=== PATIENT | female | born 1995 | race Asian ===

== ENCOUNTER 2016-12-09 20:31 | Emergency (ER) | payer OTHER ==
[2016-12-09 21:22] LABS: Urine Bilirubin Negative (Negative); Urine Glucose Negative (Negative); Urine Nitrite Negative (Negative)
[2016-12-09 21:31] LABS: Hematocrit 38 % (35-47); Hemoglobin 12.6 g/dl (12.0-16.0); Mean Corpuscular HGB Conc 33 g/dl (31-36); Mean Corpuscular Hemoglobin 27 pg (27-31); Mean Corpuscular Volume 83 fL (80-97); Mean Platelet Volume 9 um3 (7.4-10.4); Red Blood Count 4.64 10^6/ul (4.0-5.4); Red Cell Distribution Width 13 % (10.5-15); White Blood Count 8.3 10^3/ul (3.5-10.8)
[2016-12-09 21:47] LABS: ALT 11 U/L (7-52); AST 19 U/L (13-39); Albumin 4.4 g/dL (3.2-5.2); Alkaline Phosphatase 33 U/L (34-104); Anion Gap 9 mmol/L (2-11); BUN/Creatinine Ratio 18.8 (8-20); Blood Urea Nitrogen 13 mg/dL (6-24); CO2 Carbon Dioxide 26 mmol/L (22-32); Calcium 9.3 mg/dL (8.6-10.3); Chloride 101 mmol/L (101-111); EGFR African American 139.5 (>60); EGFR Non-African American 108.5 (>60); Globulin 3.7 g/dL (2-4); Glucose 96 mg/dL (70-100); Lipase 40 U/L (11.0-82.0); Potassium 3.9 mmol/L (3.5-5.0); Sodium 136 mmol/L (133-145); Total Protein 8.1 g/dL (6.4-8.9)
--- NOTE | 2016-12-09 21:55 | RAD ---
INDICATION: Left flank pain COMPARISON: None TECHNIQUE: Noncontrast axial source images were acquired from the level hemidiaphragms to the symphysis pubis as part of CT imaging for renal stone. Lung bases: The lung bases are clear. Liver: The liver is normal in size. Noncontrast imaging shows no evidence of a hepatic mass or ductal dilatation. Gallbladder: The gallbladder is contracted and therefore not well evaluated. Spleen: The spleen is normal in size. The noncontrast CT appearance is normal. Pancreas: Noncontrast imaging shows no pancreatic mass or ductal dilitation. Adrenal glands: No masses are identified. Kidneys/Bladder: There is no evidence of nephrolithiasis or CT evidence of hydronephrosis. Noncontrast imaging shows no evidence of a renal mass. The bladder is unremarkable.. Adenopathy: There is no evidence of intraperitoneal or retroperitoneal adenopathy. Evaluation is limited without oral contrast. Fluid collections: There is a small amount of free fluid in the cul-de-sac. Vessels: The aorta and iliac vessels are normal in caliber. There are no significant atherosclerotic changes. The IVC appears normal Pelvic organs: The uterus and adnexa appear normal GI tract: Limited evaluation of bowel shows a distended stomach with ingested material. The noncontrast CT appearance of the remainder the GI tract is unremarkable. Soft tissues: No soft tissue abnormalities of the extraperitoneal abdomen or pelvis are identified. Osseous structures: There are no acute osseous findings. IMPRESSION: NO CT EVIDENCE OF UROLITHIASIS. FLUID IN THE CUL-DE-SAC LIKELY REPRESENTING PHYSIOLOGIC FREE FLUID
[2016-12-09] MEDS ORDERED: Amoxicillin/Clavulanate TAB* 875 MG PO ONE (23:04)
[2016-12-09] MEDS ORDERED: Ibuprofen TAB* 600 MG PO ONE (23:04)
--- NOTE | 2016-12-09 23:28 | ED ---
Teodoro North Adam, scribed for Adolfo Crystal on 12/09/16 at 2100 . GI/ HPI - HPI Summary HPI Summary: Pt is a 21 year old female presenting with abdominal pain and urinary symptoms. She states that she has been having urgency to urinate at night for the past 3 days. Today she developed a throbbing pain in her LLQ which has been intermittent since. At 16:00 today she had one episode of burning during urination. She has been seen at [facility] and urgent care and states that results were negative for UTI at both. referred her to the ED. Pt states that she was treated for chlamydia by [facility] last night. She denies any other PMHx. - History of Current Complaint Chief Complaint: EDUrogenitalProblems Stated Complaint: POSS BLADDER INFECTION Hx Obtained From: Patient Onset/Duration: Started Days Ago, Atraumatic, Still Present Timing: Intermittent Severity: Moderate Current Severity: Moderate Pain Intensity: 1 Location of Pain: LLQ Pain Characteristics: Other: - Throbbing Associated Signs and Symptoms: Positive: Dysuria - Urgency, burning (1x) Aggravating Factor(s): Nothing Alleviating Factor(s): Nothing - Allergy/Home Medications Allergies/Adverse Reactions: Allergies Allergy/AdvReac Type Severity Reaction Status Date / Time No Known Allergies Allergy Verified 12/09/16 20:39 PMH/Surg Hx/FS Hx/Imm Hx Previously Healthy: Yes Infectious Disease History: No Infectious Disease History: Denies: Traveled Outside the [place] in Last 30 Days - Family History Known Family History: Positive: None - "Not that I know of" - Social History Occupation: Student Lives: Alone Alcohol Use: Weekly Hx Substance Use: No Substance Use Type: Reports: None Hx Tobacco Use: No Smoking Status (MU): Never Smoked Tobacco Review of Systems Negative: Fever Positive: Abdominal Pain Positive: burning, urgency All Other Systems Reviewed And Are Negative: Yes Physical Exam - Summary Physical Exam Summary: Examination of pelvic area and perineum (with nurse present in room) reveals redness over the left side of the pelvic area. Triage Information Reviewed: Yes Vital Signs On Initial Exam: Initial Vitals Temp Pulse Resp BP Pulse Ox 99.5 F 83 15 115/78 99 12/09/16 20:34 12/09/16 20:34 12/09/16 20:34 12/09/16 20:34 12/09/16 20:34 Vital Signs Reviewed: Yes Appearance: Positive: Well-Appearing, No Pain Distress Skin: Positive: Warm, Skin Color Reflects Adequate Perfusion, Dry Head/Face: Positive: Normal Head/Face Inspection Eyes: Positive: EOMI, ARIES ENT: Positive: Normal ENT inspection Neck: Positive: Supple, Nontender Respiratory/Lung Sounds: Positive: Clear to Auscultation, Breath Sounds Present Cardiovascular: Positive: RRR, Pulses are Symmetrical in both Upper and Lower Extremities Abdomen Description: Positive: Soft, Other: - LLQ tenderness Bowel Sounds: Positive: Present Musculoskeletal: Positive: Normal, Strength/ROM Intact Neurological: Positive: Normal, Sensory/Motor Intact, Alert, Oriented to Person Place, Time Diagnostics - Vital Signs Vital Signs Temp Pulse Resp BP Pulse Ox 12/09/16 20:34 99.5 F 83 15 115/78 99 - Laboratory Result Diagrams: 12/09/16 21:25 12/09/16 21:25 Lab Statement: Any lab studies that have been ordered have been reviewed, and results considered in the medical decision making process. - CT A/P CT Interpretation Completed By: Radiologist - IMPRESSION: NO CT EVIDENCE OF UROLITHIASIS. FLUID IN THE CUL-DE-SAC LIKELY REPRESENTING PHYSIOLOGIC FREE FLUID GIGU Course/Dx - Course Course Of Treatment: Examination of pelvic area and perineum (with nurse present in room) revealed redness over the left side of the pelvic area. Patient will be given abx and Motrin and she will follow up with [facility] in the next 3-4 days. Labs, urine, and CT scan were negative. - Diagnoses Provider Diagnoses: Folliculitis, Flank pain Discharge - Discharge Plan Condition: Stable Disposition: HOME Prescriptions: Amoxicillin/Clavulanate TAB* [Augmentin TAB 875*] 875 mg PO BID #20 tab Ibuprofen TAB* [Motrin TAB* 600 MG] 600 mg PO Q8H PRN #20 tab PRN Reason: Pain Patient Education Materials: Folliculitis (ED), Flank Pain (ED) Referrals: [facility] ARABELLA Chuadhary [Primary Care Provider] - Additional Instructions: Follow up with your [facility] in the next 3-4 days. The documentation as recorded by the Teodoro ferrer Adam accurately reflects the service I personally performed and the decisions made by , Adolfo Crystal.
[2016-12-09 23:42] VITALS: BP 110/60
== END 2016-12-09 23:41 | disposition home or self-care (01) ==
LOC: ED 20:31
DX: L73.9 Follicular disorder, unspecified (principal); R10.32 Left lower quadrant pain; R30.0 Dysuria
CPT/HCPCS: 36415; 74176; 80053; 81003; 83690; 84702; 85025; 99282; A9270-GY

== ENCOUNTER 2017-01-13 11:09 | Emergency (ER) | payer OTHER ==
[2017-01-13] MEDS ORDERED: Ibuprofen TAB* 600 MG PO ONE (12:02)
[2017-01-13] MEDS ORDERED: Amoxicillin CAP* 250 MG PO ONE (12:23)
--- NOTE | 2017-01-13 12:32 | ED ---
Throat Pain/Nasal Congestion - HPI Summary HPI Summary: 21 y/o female with 2 day h/0 increasing throat pain, swollen tonsils, white "stuff" on tonsils, increasd pain with swallowing Recent ABX use for folliculitis. NO recent URIs. no pmh, no psh. ? low grade fever yesterday, none today. Taking alleve for pain, none today. + body aches, minimally, + headaches. no other complaints, concerns. - History of Current Complaint Chief Complaint: EDThroatPain Time Seen by Provider: 01/13/17 12:01 Hx Obtained From: Patient Onset/Duration: Gradual Onset, Lasting Days Severity: Moderate Associated Signs And Symptoms: Positive: Dysphagia - Allergies/Home Medications Allergies/Adverse Reactions: Allergies Allergy/AdvReac Type Severity Reaction Status Date / Time No Known Allergies Allergy Verified 12/09/16 20:39 PMH/Surg Hx/FS Hx/Imm Hx Previously Healthy: Yes Infectious Disease History: Denies: Traveled Outside the [place] in Last 30 Days - Family History Known Family History: Positive: None - "Not that I know of" - Social History Alcohol Use: Weekly Hx Substance Use: No Substance Use Type: Reports: None Hx Tobacco Use: No Smoking Status (MU): Never Smoked Tobacco Review of Systems Positive: Fever, Chills Eyes: Negative Positive: Sore Throat Cardiovascular: Negative Respiratory: Negative Gastrointestinal: Negative Genitourinary: Negative Positive: Myalgia Skin: Negative Neurological: Negative Psychological: Normal All Other Systems Reviewed And Are Negative: Yes Physical Exam Triage Information Reviewed: Yes Vital Signs On Initial Exam: Initial Vitals Temp Pulse Resp BP Pulse Ox 98.2 F 106 16 121/63 100 01/13/17 11:12 01/13/17 11:12 01/13/17 11:12 01/13/17 11:12 01/13/17 11:12 Vital Signs Reviewed: Yes Appearance: Positive: Well-Appearing, No Pain Distress, Well-Nourished Skin: Positive: Warm, Skin Color Reflects Adequate Perfusion Head/Face: Positive: Normal Head/Face Inspection ENT: Positive: Pharyngeal erythema, Tonsillar swelling - ~ 10-15% increased, no kissing tonsils., Tonsillar exudate - white b/l, L>R Neck: Positive: Supple, Nontender, Enlarged Nodes @ - mild enlarged Respiratory/Lung Sounds: Positive: Clear to Auscultation, Breath Sounds Present Cardiovascular: Positive: Normal, Pulses are Symmetrical in both Upper and Lower Extremities, Tachycardia - mild Diagnostics - Vital Signs Vital Signs Temp Pulse Resp BP Pulse Ox 01/13/17 11:12 98.2 F 106 16 121/63 100 - Laboratory Lab Results: Lab Results 01/13/17 Range/Units 12:06 Group A Strep Rapid Negative (Negative) Lab Statement: Any lab studies that have been ordered have been reviewed, and results considered in the medical decision making process. EENT Course/Dx - Course Course Of Treatment: rapid strep -, started on ABX, Motrin for pain, follow up with [facility]. - Diagnoses Provider Diagnoses: Acute bacterial tonsillitis Discharge - Discharge Plan Condition: Fair Disposition: HOME Prescriptions: Amoxicillin CAP* [Amoxicillin 500 MG CAP*] 500 mg PO Q12H #20 cap Patient Education Materials: Tonsillitis (ED) Referrals: [facility] LISETH Chaudhary [Primary Care Provider] - Additional Instructions: - Take antibiotics as directed - Follow up with Liseth by Tuesday if no improvement - Motrin or Alleve as directed to decrease pain - Increase fluids - REturn to ER with increased pain, drooling, unable to swallow
[2017-01-13 12:48] VITALS: BP 101/59
== END 2017-01-13 12:50 | disposition home or self-care (01) ==
LOC: ED 11:09
DX: J03.80 Acute tonsillitis due to other specified organisms (principal); B96.89 Other specified bacterial agents as the cause of diseases classified elsewhere
CPT/HCPCS: 87651; 99282; A9270-GY

== ENCOUNTER 2017-07-08 02:04 | Emergency (ER) | payer OTHER ==
[2017-07-08 04:45] LABS: Hematocrit 35 % (35-47); Hemoglobin 11.3 g/dl (12.0-16.0); Mean Corpuscular HGB Conc 32 g/dl (31-36); Mean Corpuscular Hemoglobin 28 pg (27-31); Mean Corpuscular Volume 86 fL (80-97); Mean Platelet Volume 8 um3 (7.4-10.4); Red Cell Distribution Width 15 % (10.5-15); White Blood Count 3.8 10^3/ul (3.5-10.8)
[2017-07-08 04:53] LABS: Acetaminophen < 15 mcg/mL; Alcohol 156 mg/dL (<10); Salicylate < 2.50 mg/dL (<30)
[2017-07-08 04:54] LABS: ALT 7 U/L (7-52); AST 13 U/L (13-39); Alkaline Phosphatase 30 U/L (34-104); Anion Gap 8 mmol/L (2-11); BUN/Creatinine Ratio 16.4 (8-20); Blood Urea Nitrogen 11 mg/dL (6-24); CO2 Carbon Dioxide 23 mmol/L (22-32); Calcium 8.6 mg/dL (8.6-10.3); Chloride 105 mmol/L (101-111); EGFR African American 142.9 (>60); EGFR Non-African American 111.1 (>60); Globulin 3.3 g/dL (2-4); Glucose 93 mg/dL (70-100); Potassium 3.7 mmol/L (3.5-5.0); Sodium 136 mmol/L (133-145); Total Protein 7.3 g/dL (6.4-8.9)
[2017-07-08 05:10] LABS: TSH (Thyroid Stimulating Horm) 0.41 mcIU/mL (0.34-5.60)
[2017-07-08] MEDS ORDERED: NS 0.9% 1000 ML* 1,000 ML IV ONE (07:31)
[2017-07-08 07:38] VITALS: BP 101/55
[2017-07-08] MEDS ORDERED: NS 0.9% 1000 ML* 1,000 ML BOLUS SCH (07:45)
--- NOTE | 2017-07-08 14:26 | ED ---
Ivy North Rebecca, scribed for Maren Valerio MD on 07/08/17 at 0612 . Substance Abuse/Use - HPI Summary HPI Summary: Pt is a 22 y/o F BIBA who presents to ED with EtOH intoxication and N/V as well as marijuana use. Level 5 caveat due to EtOH intoxication. - History Of Current Complaint Chief Complaint: EDSubstanceAbuse Stated Complaint: OVERDOSE/SUBSTANCE ABUSE Time Seen by Provider: 07/08/17 04:09 Hx Obtained From: EMS Hx From Patient Unobtainable Due To: Other - EtOH intoxication Hx Last Menstrual Period: May-" Ingestion History: Type/Name Of Drug - EtOH andmarijuana Overdose Characteristics: Oral Associated Signs And Symptoms: Nausea, Vomiting - Allergies/Home Medications Allergies/Adverse Reactions: Allergies Allergy/AdvReac Type Severity Reaction Status Date / Time No Known Allergies Allergy Verified 12/09/16 20:39 PMH/Surg Hx/FS Hx/Imm Hx Previously Healthy: No - [place] - Level 5 caveat due to EtOH intoxication Infectious Disease History: Unable to Obtain/Confirm Infectious Disease History: Denies: Traveled Outside the [place] in Last 30 Days - Family History Known Family History: Positive: Unknown - Level 5 caveat due to EtOH intoxication - Social History Alcohol Use: Weekly Hx Substance Use: No Substance Use Type: Reports: Marijuana Hx Tobacco Use: No Smoking Status (MU): Never Smoked Tobacco Review of Systems - ROS Summary Review of Systems Summary: Level 5 caveat due to EtOH intoxication Positive: Vomiting, Nausea Positive: Other - EtOH intoxcation All Other Systems Reviewed And Are Negative: No Physical Exam Triage Information Reviewed: Yes Vital Signs On Initial Exam: Initial Vitals Temp Pulse Resp BP Pulse Ox 98.6 F 76 16 92/59 98 07/08/17 02:07 07/08/17 02:07 07/08/17 02:07 07/08/17 02:07 07/08/17 02:07 Vital Signs Reviewed: Yes Completion Of Physical Exam Limited Due To: Level 5 - EtOh intoxication Skin: Positive: Warm, Dry Respiratory/Lung Sounds: Positive: Clear to Auscultation, Breath Sounds Present , Other - No repsiratory distress Cardiovascular: Positive: RRR, Pulses are Symmetrical in both Upper and Lower Extremities, Other - Brisk capillary refill. Negative: Murmur Abdomen Description: Positive: Nontender, Soft Diagnostics - Vital Signs Vital Signs Temp Pulse Resp BP Pulse Ox 07/08/17 05:30 65 95/62 98 07/08/17 05:00 71 95/54 98 07/08/17 04:30 64 107/56 98 07/08/17 04:00 81 90/54 96 07/08/17 03:30 74 93/54 95 07/08/17 03:00 71 90/50 96 07/08/17 02:33 68 96/57 97 07/08/17 02:31 71 95 07/08/17 02:30 86/51 07/08/17 02:07 98.6 F 76 16 92/59 98 - Laboratory Lab Results: Lab Results 07/08/17 07/08/17 Range/Units 04:24 04:24 WBC 3.8 (3.5-10.8) 10^3/ul RBC 4.10 (4.0-5.4) 10^6/ul Hgb 11.3 L (12.0-16.0) g/dl Hct 35 (35-47) % MCV 86 (80-97) fL MCH 28 (27-31) pg MCHC 32 (31-36) g/dl RDW 15 (10.5-15) % Plt Count 254 (150-450) 10^3/ul MPV 8 (7.4-10.4) um3 Neut % (Auto) 64.6 (38-83) % Lymph % (Auto) 26.2 (25-47) % [place] % (Auto) 6.5 (1-9) % Eos % (Auto) 2.2 (0-6) % Baso % (Auto) 0.5 (0-2) % Absolute Neuts (auto) 2.5 (1.5-7.7) 10^3/ul Absolute Lymphs (auto) 1.0 (1.0-4.8) 10^3/ul Absolute Monos (auto) 0.2 (0-0.8) 10^3/ul Absolute Eos (auto) 0.1 (0-0.6) 10^3/ul Absolute Basos (auto) 0 (0-0.2) 10^3/ul Absolute Nucleated RBC 0 10^3/ul Nucleated RBC % 0.1 Sodium 136 (133-145) mmol/L Potassium 3.7 (3.5-5.0) mmol/L Chloride 105 (101-111) mmol/L Carbon Dioxide 23 (22-32) mmol/L Anion Gap 8 (2-11) mmol/L BUN 11 (6-24) mg/dL Creatinine 0.67 (0.51-0.95) mg/dL Est GFR ( Amer) 142.9 (>60) Est GFR (Non-Af Amer) 111.1 (>60) BUN/Creatinine Ratio 16.4 (8-20) Glucose 93 (70-100) mg/dL Calcium 8.6 (8.6-10.3) mg/dL Total Bilirubin 0.30 (0.2-1.0) mg/dL AST 13 (13-39) U/L ALT 7 (7-52) U/L Alkaline Phosphatase 30 L (34-104) U/L Total Protein 7.3 (6.4-8.9) g/dL Albumin 4.0 (3.2-5.2) g/dL Globulin 3.3 (2-4) g/dL Albumin/Globulin Ratio 1.2 (1-3) TSH 0.41 (0.34-5.60) mcIU/mL Beta HCG, Quant < 0.60 mIU/mL Salicylates < 2.50 (<30) mg/dL Acetaminophen < 15 mcg/mL Serum Alcohol 156 H (<10) mg/dL Result Diagrams: 07/08/17 04:24 07/08/17 04:24 Lab Statement: Any lab studies that have been ordered have been reviewed, and results considered in the medical decision making process. Course/Dx - Course Assessment/Plan: Pt is a 22 y/o F BIBA who presents to ED with EtOH intoxication and N/V as well as marijuana use. Level 5 caveat due to EtOH intoxication. Serum alcohol of 156. Pt will be D/C to home with Dx of alcohol intoxication. Patient medications reviewed. - Diagnoses Provider Diagnoses: Alcohol intoxication Discharge - Discharge Plan Condition: Stable Disposition: HOME Patient Education Materials: Alcohol Intoxication (ED) Referrals: [facility] - Amol ROTH [Primary Care Provider] - 3 Days The documentation as recorded by the Ivy ferrer Rebecca accurately reflects the service I personally performed and the decisions made by Teodoro redmond Barbara J, MD.
== END 2017-07-08 07:40 | disposition home or self-care (01) ==
LOC: ED 02:04
DX: F10.129 Alcohol abuse with intoxication, unspecified (principal); Y90.6 Blood alcohol level of 120-199 mg/100 ml; R11.2 Nausea with vomiting, unspecified; F12.90 Cannabis use, unspecified, uncomplicated
CPT/HCPCS: 36415; 80053; 80320; 80329; 84443; 84702; 85025; 99284; G0480